=== PATIENT | female | born 1975 | race African-American/Black ===

== ENCOUNTER 2017-12-20 22:22 | Emergency (ER) | payer BC, OTHER ==
[~2017-12-20] VITALS: Ht 160 cm; Wt 63.0 kg
[2017-12-20] MEDS ORDERED: SODIUM CHLORIDE 0.9% 1,000 ML IV ONE (23:00)
[2017-12-21 02:41] VITALS: BP 132/65
== END 2017-12-21 02:43 | disposition home or self-care (01) ==
LOC: ER 22:24
DX: F41.9 Anxiety disorder, unspecified (principal); F12.90 Cannabis use, unspecified, uncomplicated
CPT/HCPCS: 96360; 96361; 99285; J7030

== ENCOUNTER 2019-12-08 23:55 | Emergency (ER) | payer OTHER ==
[~2019-12-08] VITALS: Ht 160 cm; Wt 66.0 kg
[2019-12-09 03:09] LABS: HEMATOCRIT. 41.3 % (36.0-48.0); HEMOGLOBIN. 14.2 g/dL (12.0-16.0); MEAN CORPUSCULAR HEMOGLOBIN 30.8 pg (28.0-32.0); MEAN CORPUSCULAR VOLUME 89.4 fL (81.0-99.0); MEAN PLATELET VOLUME 8.4 fl (7.4-10.4); PLATELET 280 x1000/uL (130-400); RED BLOOD CELL COUNT 4.62 mill/uL (4.2-5.4); RED CELL DISTRIBUTION WIDTH 14.8 % (11.6-14.6)
[2019-12-09 03:19] LABS: CHLORIDE 108 mEq/L (98-107)
[2019-12-09 04:05] LABS: PLATELET ESTIMATE NORMAL
[2019-12-09 04:55] LABS: CLARITY URINE CLEAR (CLEAR); COLOR URINE YELLOW (YELLOW); KETONES URINE 2+ (NEGATIVE); LEUKOCYTE ESTERASE URINE NEGATIVE (NEGATIVE); NITRITE URINE NEGATIVE (NEGATIVE); OCCULT BLOOD URINE NEGATIVE (NEGATIVE); PH URINE 6.5 (4.5-8.0); PROTEIN URINE NEGATIVE (NEGATIVE); SPECIFIC GRAVITY URINE 1.024 (1.005-1.030); UROBILINOGEN URINE 0.2 E.U./dL (0.2-1.0)
[2019-12-09] MEDS ORDERED: ONDANSETRON 4MG ODT PO ONE (05:30)
[2019-12-09] MEDS ORDERED: ACETAMINOPHEN 325MG TABLET PO ONE (05:30)
[2019-12-09 05:58] VITALS: BP 111/71
== END 2019-12-09 05:59 | disposition home or self-care (01) ==
LOC: ER 12-09 01:01
DX: K29.70 Gastritis, unspecified, without bleeding (principal)
CPT/HCPCS: 36415; 76705; 80053; 81003; 83690; 85025; 93005; 99284; Q0162